=== PATIENT | female | born 1955 | race Caucasian/White ===

== ENCOUNTER → 2017-07-05 | Outpatient (CLI) | payer OTHER | END | disposition home or self-care (01) | LOC: NUC 09:43 | DX: M19.032 Primary osteoarthritis, left wrist (principal); M19.031 Primary osteoarthritis, right wrist; M19.042 Primary osteoarthritis, left hand; M19.041 Primary osteoarthritis, right hand; M17.0 Bilateral primary osteoarthritis of knee; R93.7 Abnormal findings on diagnostic imaging of other parts of musculoskeletal system; M79.662 Pain in left lower leg | CPT/HCPCS: 78315; A9503 ==